=== PATIENT | female | born 1980 | race Caucasian/White ===

== ENCOUNTER 2018-08-28 12:18 | Emergency (ER) | payer BC ==
[~2018-08-28] VITALS: Ht 175.3 cm; Wt 67.1 kg
[2018-08-28] MEDS ORDERED: IV NS 0.9% 1,000 ML BAG IV ONE (13:00)
[2018-08-28] MEDS ORDERED: ONDANSETRON HCL/PF 4 MG/2 ML VIAL ONE (13:00)
[2018-08-28] MEDS ORDERED: ACETAMINOPHEN ES 500 MG TABLET ONE (13:00)
[2018-08-28] MEDS ORDERED: KETOROLAC TROMETHAMINE INJ 30 MG/ML VIAL IV ONE (13:00)
[2018-08-28] MEDS ORDERED: ONDANSETRON HCL/PF 4 MG/2 ML VIAL IVP ONE (13:00)
[2018-08-28] MEDS ORDERED: ACETAMINOPHEN 325 MG TABLET PO ONE (13:00)
[2018-08-28 13:07] LABS: BILIRUBIN,URINE Negative (NEGATIVE); BLOOD, URINE Large Ery/uL (NEGATIVE); COLOR,URINE Yellow (YELLOW); KETONES,URINE Negative (NEGATIVE); LEUKOCYTE ESTERASE ,URINE Negative (NEGATIVE); NITRITE, URINE Negative (NEGATIVE); PH,URINE 8.5 (5.0-8.0); PROTEIN,URINE Trace mg/dl (NEGATIVE); UGLUCOSE Negative (NEGATIVE); UROBILINOGEN,URINE 0.2 EU/dL (0.2)
[2018-08-28 13:08] LABS: BASOPHILS # (AUTO) 0.1 /CMM (0.0-0.2); BASOPHILS % (AUTO) 0.8 % (0.0-2.0); EOSINOPHILS % (AUTO) 1.2 % (0.0-6.0); HEMATOCRIT 40 % (33-45); LYMPHOCYTES # (AUTO) 2.1 /CMM (0.8-4.8); LYMPHOCYTES % (AUTO) 19.9 % (20.0-44.0); MEAN CORPUSCULAR HGB CONC 35 g/dl (31.0-36.0); MEAN CORPUSCULAR VOLUME 94 fL (82-100); MONOCYTES # (AUTO) 0.6 /CMM (0.1-1.30); MONOCYTES % (AUTO) 5.7 % (2.0-12.0); NEUTROPHILS # (AUTO) 7.7 /CMM (1.8-8.9); NEUTROPHILS % (AUTO) 72.4 % (43.0-81.0); PLATELET COUNT (AUTO) 217 /CMM (150-450); RED BLOOD CELL COUNT(AUTO) 4.31 MIL/uL (4.0-5.2); WHITE BLOOD COUNT (AUTO) 10.6 K/uL (4.3-11.0)
[2018-08-28 13:16] LABS: CALCIUM, SERUM 9.2 mg/dL (8.5-10.1); CREATININE 0.9 mg/dL (0.6-1.3); POTASSIUM 4.2 mmol/L (3.5-5.1)
[2018-08-28 13:17] LABS: APPEARANCE,URINE Cloudy (CLEAR)
[2018-08-28 13:19] LABS: BACTERIA,URINE None seen /HPF (None Seen); RBC,URINE 80-100 /HPF (0-2); SQUAMOUS EPITHELIAL CELL,UR Few /HPF (None Seen); WBC,URINE 0-3 /HPF (0-3)
[2018-08-28 14:18] VITALS: BP 126/73
== END 2018-08-28 14:20 | disposition home or self-care (01) ==
LOC: ER 12:26
DX: N93.9 Abnormal uterine and vaginal bleeding, unspecified (principal); R11.10 Vomiting, unspecified
CPT/HCPCS: 36415; 76856; 80048; 81001; 84703; 85025; 85730; 96360; 99284; J7030; 81000-TC; J2405